=== PATIENT | female | born 1960 ===

== ENCOUNTER 2018-01-23 12:00 | Inpatient (IN) | payer OTHER ==
[~2018-01-23] VITALS: Ht 157.5 cm; Wt 71.2 kg
[2018-01-23] MEDS ORDERED: MELOXICAM15 MG PO (13:34)
[2018-01-23] MEDS ORDERED: SYNTHROID137 MCG PO (13:34)
[2018-01-23] MEDS ORDERED: GABAPENTIN800 MG PO (13:34)
[2018-01-23] MEDS ORDERED: PRAVASTATIN SOD40 MG PO (13:35)
[2018-01-23] MEDS ORDERED: CLONAZEPAM2 MG PO (13:35)
[2018-01-23] MEDS ORDERED: TRAMADOL HCL50 MG PO (13:35)
[2018-01-23] MEDS ORDERED: AMBIEN5 MG PO (13:36)
[2018-01-23] MEDS ORDERED: RESTORIL30 M1 PO (13:36)
[2018-01-23] MEDS ORDERED: PAXIL20 MG PO (13:36)
[2018-01-31] MEDS ORDERED: PERCOCET 5-3251 EACH PO (09:11)
[2018-01-31] MEDS ORDERED: DOCUSATE SODIU100 MG PO (09:11)
[2018-01-31] MEDS ORDERED: RESTORIL30 M1 PO (09:11)
[2018-01-31] MEDS ORDERED: GABAPENTIN800 MG PO (09:11)
== END 2018-02-01 12:39 | disposition home or self-care (01) | DRG 454 ==
LOC: O/R 01-31 04:59 → SURH 01-31 07:00 → PED 01-31 10:32 → SURH 01-31 12:00 → PED 02-01 12:39
PROVIDERS: Orthopaedic Surgery Orthopaedic Surgery of the Spine
PROC: 0RG2071 Fusion of 2 or more Cervical Vertebral Joints with Autologous Tissue Substitute, Posterior Approach, Posterior Column, Open Approach (ICD-10-PCS; 2018-01-31)
PROC: 0RT30ZZ Resection of Cervical Vertebral Disc, Open Approach (ICD-10-PCS; 2018-01-31)
PROC: 07DS3ZZ Extraction of Vertebral Bone Marrow, Percutaneous Approach (ICD-10-PCS; 2018-01-31)
PROC: 0RG20A0 Fusion of 2 or more Cervical Vertebral Joints with Interbody Fusion Device, Anterior Approach, Anterior Column, Open Approach (ICD-10-PCS; principal; 2018-01-31 07:00)
DX: M50.01 Cervical disc disorder with myelopathy, high cervical region (principal); M47.12 Other spondylosis with myelopathy, cervical region; E03.8 Other specified hypothyroidism